=== PATIENT | female | born 1970 | race Caucasian/White ===

== ENCOUNTER 2017-07-18 04:02 | Emergency (ER) | payer OTHER ==
--- NOTE | 2017-07-18 04:14 | DR.GENAD ---
HPI - PCP Primary Care Physician: bailey - Complaint/Symptoms Chief Complaint Doctors Comments: Patient states that she felt her lower lip swelling, denies being allergic to anything that she is aware of. She deies taking MARY inhibitor blood pressure medication. She is alert in no acute distress Chief Complaint:: pt states" my lip started swelling and i took 2 benadryl but it felt like it was still swelling". pt bottom lip on lt side slightly swollen - Source History Provided: Patient - Mode of Arrival Mode of Arrival: Ambulatory - Timing Onset of Chief Complaint: 07/18/17 PMH - PMH Past Medical History: No Past Surgical History: Yes Surgical History: , Cholecystectomy - Family History History of Family Medical Conditions: Yes Family Medical History: Diabetes Mellitus, Cancer, Coronary Artery Disease, Heart Failure, Sudden Cardiac , Hypertension - Social History Does any household member use tobacco: No Alcohol Use: Occasionally Do you use any recreational Drugs:: No Lives With: Family Lives Where: Home - infectious screening In the last 2 months have you had wt loss of >10#?: NO Have you had fever, night sweats or hemotysis?: No Have you traveled outside the country in the last 6 months?: No Isolation: Standard ROS - Review of Systems Eyes: No Symptoms Reported ENTM: No Symptoms Reported Respiratoy: No Symptoms Reported Cardiovascular: No Symptoms Reported Gastrointestinal/Abdominal: No Symptoms Reported Genitourinary: No Symptoms Reported Neurological: No Symptoms Reported Musculoskeletal: No Symptoms Reported Integumentary: No Symptoms Reported Hematologic/Lymphatic: No Symptoms Reported Endocrine: No Symptoms Reported Psychiatric: No Symptoms Reported All Other Systems: Reviewed and Negative PE - Vital Signs Vitals: Temperature 97 F Pulse Rate 70 Respiratory Rate 20 Blood Pressure 119/75 O2 Sat by Pulse Oximetry 100 - General Limitations: No Limitations General Appearance: Alert - Head Head Exam: Normal Inspection, Atraumatic - Eyes Eye exam: Normal Appearance, PERRL, EOMI - ENT ENT Exam: Normal Oropharynx, Other (left lower lip swelling lateral 1/3) External Ear Exam: Normal External Inspection TM/Canal Exam: Bilateral Normal Nose Exam: Normal Nose Exam Mouth Exam: Normal Inspection Throat Exam: Normal Inspection - Neck Neck Exam: Normal Inspection, Full ROM - Chest Chest Inspection: Normal Inspection - Respiratory Respiratory Exam: Normal Lung Sounds Bilat Respiratory Exam: Bilateral Clear to Auscultation - Cardiovascular Cardiovascular Exam: Regular Rate - Abdominal Exam Abdominal Exam: Normal Inspection Abdominal Tenderness: negative: RUQ, RLQ, LUQ, LLQ, Epigastrium, Suprapubic, Diffuse, Mild, Moderate, Severe, Other - Extremities Extremities Exam: Normal Inspection, Full ROM - Back Back Exam: Normal Inspection - Neurologic Neurological Exam: Alert, Oriented X3, CN II-XII Intact - Psychiatric Psychiatric Exam: Normal Affect - Skin Skin Exam: Warm, Dry, Intact Course - Treatment Treatment: see orders - Reevaluation 1st: Improved - Education/Counseling Educated On: Treatment, Diagnosis, Prognosis - Diagnosis Discharge Problem: Angio-edema Qualifiers: Encounter type: initial encounter Qualified Code(s): T78.3XXA - Angioneurotic edema, initial encounter - Discharge Plan Condition: Stable - Follow ups/Referrals Follow ups/Referrals: NFD,None [Primary Care Provider] - 3 days - Instructions
[2017-07-18 04:17] VITALS: BP 119/75; BMI 29.8
[2017-07-18] MEDS ORDERED: SOLU-Medrol 125 MG VIAL IVP ONE (04:17)
[2017-07-18] MEDS ORDERED: ADRENALINE CHL INJ IM ONE (04:17)
[2017-07-18] MEDS ORDERED: ZANTAC INJ 50 MG in NS 50 ML IV 50 ML IV ONE (04:17)
[2017-07-18] MEDS ORDERED: NS 1000 ML 1,000 ML ONE (04:21)
[2017-07-18] MEDS ORDERED: SOLU-Medrol 125 MG VIAL ONE (04:21)
[2017-07-18] MEDS ORDERED: ADRENALINE CHL INJ ONE (04:22)
[2017-07-18] MEDS ORDERED: NS 1000 ML 1,000 ML IV SCH (05:00)
== END 2017-07-18 05:56 | disposition home or self-care (01) ==
LOC: ER 04:02
DX: T78.3XXA Angioneurotic edema, initial encounter (principal)
CPT/HCPCS: 96365; 96367; 96372; 96374; 96375; 99282; 99283; A4222; J0170; J2780; J2930